=== PATIENT | male | born 1970 | race Two or more races ===

== ENCOUNTER 2025-08-05 17:25 | Emergency (ER) | payer OTHER ==
[~2025-08-05] VITALS: Ht 170.2 cm; Wt 75.9 kg
[2025-08-05 17:27] VITALS: PULSE 65; RESP 14; O2SAT 97
--- NOTE | 2025-08-05 18:18 | ECG ---
[facility] Test Date: 2025-08-05 Test Time: 17:31:38 Pat Name: HENRIK KRUEGER Department: ED Room: Gender: M Full Time Paramedic: CLAIRE : 1970 Requested By: ANDRES BALL Order Number: [id number] Reading MD: Davon Anderson Measurements Intervals Sixes Rate: 66 P: 67 AL: 236 QRS: 64 QRSD: 106 T: 78 QT: 388 QTc: 407 Interpretive Statements Sinus rhythm Prolonged AL interval Inferior infarct, old Probable anterior infarct, age indeterminate Electronically Signed On 08-06-2025 17:48:38 PST by Davon Anderson Please click the below link to view image of tracing.
[2025-08-05] MEDS: ONDANSETRON HCL 4 MG/2 ML VIAL IV ONE (18:30)
--- NOTE | 2025-08-05 18:34 | ED.PDOC ---
History of Present Illness HPI Comments 55-year-old male who comes in with chief complaint of abdominal pain. The patient is also having some vomiting but no diarrhea. The patient also denies any fever or chills. The patient states that he feels somewhat bloated and states that the pain is a 10/10. According to the patient's family, they found him on the floor while he was trying to go to the bathroom. There has been no upper or lower GI bleeding. There has been no history of this abdominal pain in the past. EMS transported the patient to our facility. The incident occurred right after 3:00 a.m. this afternoon. Upon examination, the patient is still complaining of some abdominal pain. Chief Complaint: Abdominal Pain Time Seen by MD: 18:05 Reviewed Notes: Nurses Notes, [place]er Notes, Medications, Allergies (No allergies to medications) Allergies: Coded Allergies: NO KNOWN ALLERGIES (Unverified , 08/05/25) Information Source: Emergency Med Personnel Mode of Arrival: EMS Severity: Moderate Timing: Hours (Started after 3:00 a.m. this afternoon) Duration: Since onset Prehospital treatment: Cherry Cutter Location: Generalized abdominal pain with some distention and vomit Past Medical History PAST MEDICAL HISTORY: DM Surgical History (Other): Unknown abdominal surgery Family History Family History: Reviewed,noncontributory to illness Social History Smoker: Non-Smoker Alcohol: Denies ETOH Use Drugs: Denies Drug Use Lives In: Home Constitutional: denies: chills, diaphoresis, fatigue, fever, malaise, sweats, weakness, others EENTM: denies: blurred vision, double vision, ear bleeding, ear discharge, ear drainage, ear pain, ear ringing, eye pain, eye redness, hearing loss, mouth pain, mouth swelling, nasal discharge, nose bleeding, nose congestion, nose p ain, photophobia, tearing, throat pain, throat swelling, voice changes, others Respiratory: denies: cough, hemoptysis, orthopnea, SOB at rest, shortness of breath, SOB with excertion, stridor, wheezing, others Cardiovascular: denies: chest pain, dizzy spells, diaphoresis, Dyspnea on exertion, edema, irregular heart beat, left arm pain, lightheadedness, palpitations, PND, syncope, others Gastrointestinal: reports: abdomen distended, abdominal pain, nausea, vomiting; denies: blood streaked bowels, constipated, diarrhea, dysphagia, difficulty swallowing, hematemesis, melena, poor appetite, poor fluid intake, rectal bleeding, rectal pain, others Genitourinary: denies: burning, dysuria, flank pain, frequency, hematuria, incontinence, penile discharge, penile sore, pain, testicle pain, testicle swelling, urgency, others Neurological: denies: dizziness, fainting, headache, left sided numbness, left sided weakness, numbness, paresthesia, pre-existing deficit, right sided numbness, right sided weakness, seizure, speech problems, tingling, tremors, weakness, others Musculoskeletal: denies: back pain, gout, joint pain, joint swelling, muscle pain, muscle stiffness, neck pain, others Integumetry: denies: bruises, change in color, change in hair/nails, dryness, laceration, lesions, lumps, rash, wounds, others Allergic/Immunocompromised: denies: Difficulty Healing, Frequent Infections, Hives, Itching, others Hematologic/Lymphatic: denies: anemia, blood clots, easy bleeding, easy bruising, swollen glands, others Endocrine: denies: excessive hunger, excessive sweating, excessive thirst, excessive urination, flushing, intolerance to cold, intolerance to heat, unexplained weight gain, unexplained weight loss, others Psychiatric: denies: anxiety, bipolar disorder, depression, hopeless, panic disorder, schizophrenia, sleepless, suicidal, others Physical Exam General Appearance: Moderate Distress HEENT: Normal ENT Inspection, Pharynx Normal, TMs Normal Neck: Full Range of Motion, Non-Tender, Normal, Normal Inspection Respiratory: Chest Non-Tender, Lungs Clear, No Accessory Muscle Use, No Respiratory Distress, Normal Breath Sounds Cardiovascular: No Edema, No JVD, No Murmur, No Gallop, Normal Peripheral Pulses, Regular Rate/Rhythm Breast Exam: Deferred Gastrointestinal: Diffuse, Distended, No Organomegaly, No Pulsatile Mass, Normal Bowel Sounds, Tenderness Genitalia: Deferred Pelvic: Deferred Rectal: Deferred Extremities: No calf tenderness, Normal capillary refill, No pedal edema Musculoskeletal : Apperance: Normal Neurologic: Alert, patient case manager II-XII nml as Tested, Motor Weakness, Normal Affect, Normal Mood, No Sensory Deficits Cerebellar Function: Normal Reflexes: Normal Skin: Dry, Normal Color, Warm Lymphatic: No Adenopathy Was a procedure done? Was a procedure done?: No Differential Dx Considerations may include: Generalized weakness, appendicitis, gastritis, bowel obstruction X-Ray, Labs, Meds, VS Vital Signs Date Time Temp Pulse Resp B/P (MAP) Pulse Ox O2 Delivery O2 Flow Rate FiO2 08/05/25 19:15 65 16 132/84 08/05/25 18:08 97.8 65 16 137/87 (104) 97 97.8 08/05/25 17:31 66 08/05/25 17:27 65 14 97 Room Air* 0 21 08/05/25 17:26 98.3 70 18 152/95 99 98.3 Lab Test 08/05/25 18:40 Range/Units White Blood Count 11.4 H 4.4-10.8 10^3/uL Red Blood Count 4.24 L 4.5-5.90 10^6/uL Hemoglobin 13.3 L 13.5-17.5 g/dL Hematocrit 39.1 L 41.0-53.0 % Mean Corpuscular Volume 92.1 80.0-100.0 fL Mean Corpuscular Hemoglobin 31.3 28.0-32.0 pg Mean Corpuscular Hemoglobin Concent 34.0 32.0-36.0 g/dL Red Cell Distribution Width 12.8 11.8-14.3 % Platelet Count 224 140-450 10^3/uL Mean Platelet Volume 9.0 6.9-10.8 fL Neutrophils (%) (Auto) 89.6 H 37.0-80.0 % Lymphocytes (%) (Auto) 6.1 L 10.0-50.0 % Monocytes (%) (Auto) 4.0 0.0-12.0 % Eosinophils (%) (Auto) 0.0 0.0-7.0 % Basophils (%) (Auto) 0.3 0.0-2.0 % Neutrophils # (Auto) 10.2 H 1.6-8.6 10 ^3/uL Lymphocytes # (Auto) 0.7 0.4-5.4 10 ^3/uL Monocytes # (Auto) 0.5 0-1.3 10 ^3/uL Eosinophils # (Auto) 0 0-0.8 10 ^3/uL Basophils # (Auto) 0 0-0.2 10 ^3/uL Nucleated Red Blood Cells 0.1 % Sodium Level 138 136-145 mmol/L Potassium Level 4.3 3.5-5.1 mmol/L Chloride Level 101 98-107 mmol/L Carbon Dioxide Level 26 20-31 mmol/L Anion Gap 11 5-15 Blood Urea Nitrogen 13 9-23 mg/dL Creatinine 0.90 0.700-1.30 mg/dL Glomerular Filtration Rate Calc 102 >90 mL/min BUN/Creatinine Ratio 14.4 10.0-20.0 Serum Glucose 182 H 74-106 mg/dL Calcium Level 9.6 8.7-10.4 mg/dL Total Bilirubin 2.5 H 0.2-1.0 mg/dL Aspartate Amino Transferase (AST) 77 H 13-40 U/L Alanine Aminotransferase (ALT) 48 H 7-40 U/L Alkaline Phosphatase 89 46-116 U/L Total Protein 8.0 5.7-8.2 g/dL Albumin 5.0 H 3.2-4.8 g/dL Lipase 39 12-53 U/L Current Medications Medications (Trade) Dose Ordered Sig/Laura Route Start Time Stop Time Status Last Admin Ondansetron HCl (Zofran) 4 mg ONCE ONCE IV 08/05/25 18:30 08/05/25 18:31 DC 08/05/25 18:30 Morphine Sulfate 4 mg ONCE ONCE IV 08/05/25 18:30 08/05/25 18:31 DC 08/05/25 19:15 IV Hep-Lock is being established. The CBC shows an elevated white blood cell count of 11.4 The rest of the CBC is within normal limits The chemistry panel shows a total bilirubin of 2.5 The liver enzymes are within normal limits At this time, the CAT scan of the abdomen and pelvis is unremarkable. The patient will be admitted to the hospitalist. We did speak to the [facility] to And she will do the final disposition on this patient. Images Reviewed?: Images reviewed and evaluated by me Time of 1ST Reevaluation: 18:34 Reevaluation 1ST: Unchanged Patient Education/Counseling: Diagnosis, Treatment, Prognosis Family Education/Counseling: No Family Present SEPSIS Sepsis Screen Date sepsis recognized/suspect: Aug 05, 2025 Time Sepsis recognized/suspect: 1725 Recent Procedure: No On Antibiotic Therapy: No Respiratory Rate >20: No Heart Rate >90: No Temp<36 C (96.8 F) or >38.3 C: No SBP <90 or MAP <65 mmHG: No New Acute Mental Status Change: No Is the patient on CPAP, BIPAP,: No Physician Orders Urinalysis (08/05/25 18:28) Ct Ab Pel Wo Con-No Oral Or Iv (08/05/25 18:28) Heplock Iv (08/05/25 18:28) Cherry Cutter (08/05/25 18:28) Blood Pressure (08/05/25 18:28) Pulse Oximetry (08/05/25 18:28) Vital Signs Date Time Temp Pulse Resp B/P (MAP) Pulse Ox O2 Delivery O2 Flow Rate FiO2 08/05/25 19:15 65 16 132/84 08/05/25 18:08 97.8 65 16 137/87 (104) 97 97.8 08/05/25 17:31 66 08/05/25 17:27 65 14 97 Room Air* 0 21 08/05/25 17:26 98.3 70 18 152/95 99 98.3 Laboratory Tests Test 08/05/25 18:40 White Blood Count 11.4 10^3/uL (4.4-10.8) H Medications Medications Dose Ordered Sig/Laura Route Start Time Stop Time Status Last Admin Dose Admin Morphine Sulfate 4 mg ONCE ONCE IV 08/05/25 18:30 08/05/25 18:31 DC 08/05/25 19:15 Ondansetron HCl 4 mg ONCE ONCE IV 08/05/25 18:30 08/05/25 18:31 DC 08/05/25 18:30 Departure 1 Departure Time of Disposition: 20:25 Impression: Primary Impression: Intractable abdominal pain Disposition: 09 ADMITTED INPATIENT Admit to: Med Surg Condition: Fair Critical Care Note Critical Care Time?: No Stability Stability form required: Yes Unstable for transfer: ED Physician Assesment (Clinical assesment) Heart Score Heart Score: Heart Score Response (Comments) Value History N/A 0 EKG N/A 0 Age N/A 0 Risk Factors N/A 0 Troponin N/A 0 Total 0 ANDRES BALL MD Aug 05, 2025 18:34
[2025-08-05 19:00] LABS: Hematocrit 39.1 % (41.0-53.0); Hemoglobin 13.3 g/dL (13.5-17.5); Mean Corpuscular Hemoglobin 31.3 pg (28.0-32.0); Mean Corpuscular Volume 92.1 fL (80.0-100.0); Nucleated Red Blood Cells % 0.1 %
[2025-08-05 19:14] LABS: Alkaline Phosphatase 89 U/L (46-116); Anion Gap 11 (5-15); BUN/Creatinine Ratio 14.4 (10.0-20.0); Blood Urea Nitrogen 13 mg/dL (9-23); Calcium 9.6 mg/dL (8.7-10.4); Carbon Dioxide 26 mmol/L (20-31); Chloride 101 mmol/L (98-107); Lipase 39 U/L (12-53); Potassium 4.3 mmol/L (3.5-5.1); Sodium 138 mmol/L (136-145); Total Protein 8.0 g/dL (5.7-8.2)
[2025-08-05] MEDS: MORPHINE SULFATE 4 MG/ML SYR/VIAL IV ONE (19:15)
[2025-08-05 19:23] LABS: Alanine Aminotransferase 48 U/L (7-40); Albumin 5.0 g/dL (3.2-4.8); Bilirubin, Total 2.5 mg/dL (0.2-1.0); Glucose 182 mg/dL (74-106)
--- NOTE | 2025-08-05 19:37 | DVH ---
Exam: CT CT AB PEL WO CON-NO ORAL OR IV History: pain Comparison Study: None Technique: Multidetector spiral CT of the abdomen was performed from lung bases to pubic symphysis. Imaging was performed without IV contrast. Axial, coronal and sagittal multiplanar reformats were obtained from the axial data set by the technologist. Radiation Dose : 1. Abdomen/Pelvis: CTDIvol 9.53 mGy, DLP 528.7 mGy*cm. Findings: Evaluation of solid organs is limited due to lack of intravenous contrast use. Lung Bases: No acute or significant lung base finding. Normal heart size. No pleural or pericardial effusion. Liver: The liver is normal in size. No focal lesions. Gallbladder and Biliary Tree: Unremarkable Spleen: Unremarkable Pancreas: The pancreas is grossly normal in appearance. Adrenal Glands: Unremarkable Kidneys: Kidneys are grossly normal without calculi or hydronephrosis. Bladder: Grossly unremarkable for degree of distention. Bowel: The stomach is grossly normal in appearance. Small bowel and colon are normal in caliber and distribution. Normal appendix is visualized in the right lower quadrant without findings of appendicitis. Ascites: Absent Lymphadenopathy: No mesenteric, retroperitoneal or periportal lymphadenopathy. Abdominal Wall and Mesentery: Unremarkable. Vasculature: The visualized abdominal aorta is normal in size and caliber. Evaluation of abdominal and pelvic vessels is limited due to lack of intravenous contrast. Pelvic Organs: Unremarkable Musculoskeletal: No aggressive focal bony lesions, acute fractures or dislocation. IMPRESSION: No acute abdominal or pelvic findings. Radiation optimization: All CT scans at this facility use at least one of these dose optimization techniques: automated exposure control mA and/or kV adjustment per patient size (includes targeted exams where dose is matched to clinical indication) or iterative reconstruction.
[2025-08-05 20:30] VITALS: PULSE 72; RESP 17; O2SAT 93
[2025-08-05 22:00] VITALS: BP 118/82; PULSE 76; RESP 11; TEMP 97.9; O2SAT 93
[2025-08-05 22:06] LABS: Urine Protein, UAD Negative (Negative)
[2025-08-05 22:21] LABS: Opiate Scree,Urine Pos (NEGATIVE)
[2025-08-05 22:24] LABS: Amphetamine Screen, Urine Neg (NEGATIVE); Barbiturate Scree,Urine Neg (NEGATIVE); Benzodiazephine Screen, Urine Neg (NEGATIVE); Cannabinoid Screen, Urine Neg (NEGATIVE); Cocaine Screen, Urine Neg (NEGATIVE); Phencyclidine Screen, Urine Neg (NEGATIVE)
--- NOTE | 2025-08-05 23:14 | DVHDS2 ---
Physician Discharge Progress N Final Diagnosis: Abdominal pain, resolved Dysuria Operations or Procedures: Operations or Procedures none Other Interventions Other Interventions lab results, CT Consultations: Consultations none Commentary: Commentary 55 y.o. male with DM was brought to the ER c/o abdominal pain. Patient stated he had vomiting earlier. He had not vomited in the ER. In further questioning, he and his mother informed that he had painful and frequent urination. Patient had CT of the abdomen and pelvis that was unremarkable. His UA was within normal limits. Patient denied h/o nephrolithiasis. His VS remained stable. Patient was discharged to f/u with Urologist outpatient. Condition on Discharge: Stable Disposition: Home SNF Discharge Will this Physician continue t: No Discharge Instructions: Diet: Consistent carbohydrate Activity: No Restrictions, As Tolerated Follow Up/Referral: PMD and Urology appointments will be scheduled by [facility] caser up and coordinated with the patient Medications: Continue home medications Follow Up Care: Discharge Statement: "Patient was advised to return to the ER or call 911 if any headaches, dizziness, shortness of breath, chest pain, abdominal pain, bleeding, fevers, or worsening of medical condition. Patient was counseled about treatment plan, medications, possible side effects, patientverbalized understanding. All questions were answered to the best of my ability. This discharge took greater then 30 minutes in planning, reviewing docum entation, counseling the patient, and discussing with other team members." MARGARETTE SYLVESTER MD Aug 05, 2025 23:14
== END 2025-08-05 23:44 | disposition home or self-care (01) ==
LOC: EDBD 17:25 → ER 17:25
DX: R10.30 Lower abdominal pain, unspecified (principal); E11.9 Type 2 diabetes mellitus without complications; Z79.899 Other long term (current) drug therapy
CPT/HCPCS: 36415; 74176; 80053; 80307; 81001; 83690; 84484; 85025; 93005; 96374; 96375; 99285; J2270; J2405